=== PATIENT | female | born 1985 | race Caucasian/White ===

== ENCOUNTER 2017-05-27 07:28 | Outpatient (CLI) | payer BC ==
[2017-05-27 07:52] LABS: BASOPHILS % 1.1 (0.0-1.5); EOSINOPHILS % 3.5 % (0.0-6.8); MEAN CORPUSCULAR HEMOGLOBIN 32.4 pg (28.0-34.0); MONOCYTES % 4.8 % (0.0-11.0); NEUTROPHILS # 3.8 # k/uL (1.4-7.7)
[2017-05-27 08:12] LABS: eGFR (African) > 60; eGFR (Non-African) > 60
== END 2017-05-27 07:30 ==
LOC: LAB 07:28
PROVIDERS: ATTEND Physician Assistant
DX: R53.83 Other fatigue (principal)
CPT/HCPCS: 36415; 80053; 82306; 84443; 85025; 85651